=== PATIENT | female | born 1950 | race Caucasian/White ===

== ENCOUNTER → 2017-04-12 | Outpatient (CLI) | payer OTHER ==
--- NOTE | ~2017-04-12 | CST ---
Cardiac Perfusion Imaging Demographics Patient Name MARY JANE Stanford Gender Female Patient Number [id number] Race Visit Number [id number] Ethnicity [employer] ID Room Number Accession Number [id number] Height 67 inches Date of 1950 Weight 265 pounds Age 66 year(s) BSA 2.28 m Referring Physician Adalberto Jhaveri MD BMI 41.5 kg/m Interpreting Physician [facility] Date of study 04/12/2017 Frances Brower MD Supervising MD/MLP [employer] Technologist Zonia Clark Ordering Physician Adalberto Jhaveri MD Stress electroencephalograph technician Stress ECG Reading [facility] Nurse Bud Rueda Physician Frances Brower MD The procedure was explained in detail to the patient. Risks, complications and alternative treatments were reviewed. Written consent was obtained. Medications Reviewed with Patient prior to Procedure. Procedure Procedure Type: Nuclear Stress Test:Cardiac Study SF Procedure Start time: 04/12/2017 09:50 Indications: Pre surgical clearance, Hyperlipidemia, Hypertension and Family history of coronary artery disease. Risk Factors The patient risk factors include:hypertension and dyslipidemia. Conclusions Summary Perfusion Images: The overall quality of the study is good. Left ventricular cavity is noted to be normal on the stress and rest studies. There is no evidence of abnormal lung activity. The right ventricle is not visualized and cannot be assessed. Stress SPECT images demonstrate homogenous tracer distribution throughout the myocardium. Rest SPECT images demonstrate homogenous tracer distribution throughout the myocardium. Gated SPECT imaging reveals normal myocardial thickening and wall motion. The left ventricular ejection fraction was calculated to be 75%. Impression ECG portion of stress test is clinically negative for ischemia by diagnostic criteria. Myocardial perfusion imaging is normal. Overall left ventricular systolic function was normal without regional wall motion abnormalities. There are no previous studies for comparison. Stress Protocols Resting ECG Normal sinus rhythm. Resting HR:60 bpm Resting BP:124/80 mmHg Stress Protocol:Pharmacologic Predicted HR: 153 bpm Test duration: 06:00 min Reason for termination:Infusion complete ECG Findings Right bundle branch block. Arrhythmias No rhythm abnormality. Symptoms Headache. Complications Procedure complication: None. Stress Interpretation Appropriate hemodynamic response to Lexiscan. No significant ST-T wave changes with Lexiscan. ECG portion is negative for ischemia by diagnostic criteria. Imaging Results Summed scores - Summed stress score: 8 - Summed rest score: 13 - Summed difference score: -5 Stress ejection Ejection fraction:75 % EDV :88 ml ESV :22 ml Stroke volume :66 ml LV mass :119 gr Imaging Protocols Rest Stress Isotope:Tc99m Myoview IV Isotope: Tc99m Myoview IV Isotope dose:10.5 mCi Isotope dose:31.6 mCi Date:04/12/2017 08:30 Date:04/12/2017 09:50 Technique: SPECT Technique: Gated Supine SPECT Supine IV remains in place after procedure. Scan Time:45-60 minutes post Scan Time:45-60 minutes post injection injection Procedure Medications - Regadenoson (Lexiscan) 0.4 mg IV over 10-15 sec. I.V. 0.4 mg. Medications administered per verbal order and read back to physician prior to administration. Medical History Admission Data Admission date: 04/12/2017 Admission Time: 08:12 Hospital Status: Outpatient. Signatures
== END | disposition home or self-care (01) ==
LOC: CARD 08:12
DX: Z01.810 Encounter for preprocedural cardiovascular examination (principal); R94.31 Abnormal electrocardiogram [ECG] [EKG]; R06.02 Shortness of breath